=== PATIENT | female | born 1975 | race African-American/Black ===

== ENCOUNTER 2017-03-20 22:34 | Inpatient (IN) | payer MEDICAID ==
[~2017-03-20] VITALS: Ht 170.2 cm; Wt 121.1 kg
[~2017-03-20 22:34] MED LIST: AMITRIPTYLINE H50 MG PO; BACLOFEN10 MG PO; DIL4 PO; DOC-Q-LACE100 MG PO; GABAPENTIN600 M1 PO; HYD1C TOP; JANUVIA100 M1 PO; LAC PO; LANTUS SOLOS100 U/M1 SQ; MAC100 PO; METFORMIN HCL500 MG PO; METOPROLOL TART25 M1 PO; MORPHINE SULFAT50 MG PO; VOLTAREN75 MG PO; ZESTRIL20 MG PO
[2017-03-20 23:34] LABS: BASOPHIL % 0.4 % (0-2); PLATELET COUNT 265 x10^3mcL (130-400); RED CELL DISTRIBUTION WIDTH 14.4 % (11.5-14.5)
[2017-03-20 23:52] LABS: ALBUMIN 3.6 g/dL (3.4-5.0); BILIRUBIN TOTAL 0.17 mg/dL (0.20-1.00); CALCIUM 9.5 mg/dL (8.5-10.1); CARBON DIOXIDE 28.1 mmol/L (21-32); CREATININE SERUM 1.5 mg/dL (0.6-1.0); POTASSIUM SERUM 3.6 mmol/L (3.5-5.1); TOTAL PROTEIN, SERUM 7.5 g/dL (6.4-8.2)
[2017-03-21 03:14] LABS: AMPHETAMINE QUAL UR NONE DETECTED (NEG <=1000)
[2017-03-21] MEDS ORDERED: BACLOFEN20 MG PO (05:32)
[2017-03-21] MEDS ORDERED: AMITRIPTYLINE150 MG PO (05:34)
[2017-03-21] MEDS ORDERED: NUCYNTA100 M1 PO (05:45)
[2017-03-21 06:25] VITALS: BP 126/83
[2017-03-21 06:51] LABS: CHOLESTEROL/HDL RATIO 4.8
[2017-03-21 07:00] LABS: FREE THYROXINE INDEX 2.2 ug/dL (1.4-4.5); T3 TOTAL 1.02 ng/mL; T4(THYROXINE) 6.6 ug/dL (4.7-13.3)
[2017-03-21 10:12] VITALS: BP 112/73
[2017-03-21 14:13] VITALS: BP 104/70
[2017-03-21 14:20] LABS: UA SPECIFIC GRAVITY >=1.030 (1.005-1.035); microscopic required? YES; urine erythrocyte NEGATIVE (NEGATIVE)
[2017-03-21 18:39] VITALS: BP 89/51
[2017-03-21 19:50] VITALS: BP 78/50
[2017-03-22 00:30] VITALS: BP 113/67
[2017-03-22 06:45] LABS: BASOPHIL % 0.5 % (0-2); PLATELET COUNT 225 x10^3mcL (130-400); RED CELL DISTRIBUTION WIDTH 14.5 % (11.5-14.5)
[2017-03-22 06:47] VITALS: BP 94/55
[2017-03-22 06:58] LABS: CALCIUM 8.3 mg/dL (8.5-10.1); CARBON DIOXIDE 29.8 mmol/L (21-32); CREATININE SERUM 1.3 mg/dL (0.6-1.0); MAGNESIUM 1.6 mg/dL (1.8-2.4)
[2017-03-22 09:43] VITALS: BP 97/66
[2017-03-22] MEDS ORDERED: MOT800 PO (13:30)
[2017-03-22 13:46] VITALS: BP 97/66
== END 2017-03-22 14:20 | disposition home or self-care (01) | DRG 203 ==
LOC: ED 22:34 → DU 03-21 04:48
PROVIDERS: Emergency Medicine; ADMIT Family Medicine
DX: M94.0 Chondrocostal junction syndrome [Tietze] (principal); N17.0 Acute kidney failure with tubular necrosis; E87.1 Hypo-osmolality and hyponatremia; G43.909 Migraine, unspecified, not intractable, without status migrainosus; M54.9 Dorsalgia, unspecified; G89.29 Other chronic pain; Z68.41 Body mass index [BMI] 40.0-44.9, adult; Z79.84 Long term (current) use of oral hypoglycemic drugs; Z79.4 Long term (current) use of insulin
CPT/HCPCS: 83880; 84439; J1170; J1815; J1885; J2060; J2270; J2405; J3010; J7030; Q0092; Q9967

== ENCOUNTER 2017-03-31 09:23 | Emergency (ER) | payer MEDICAID ==
[~2017-03-31 09:23] MED LIST changes: +AMITRIPTYLINE150 MG PO; +BACLOFEN20 MG PO; +MOT800 PO; +NUCYNTA100 M1 PO
[2017-03-31 10:46] LABS: BASOPHIL % 0.7 % (0-2); PLATELET COUNT 280 x10^3mcL (130-400); RED CELL DISTRIBUTION WIDTH 14.3 % (11.5-14.5)
[2017-03-31 11:01] LABS: CALCIUM 9.3 mg/dL (8.5-10.1); CARBON DIOXIDE 23.6 mmol/L (21-32); CREATININE SERUM 2.7 mg/dL (0.6-1.0); POTASSIUM SERUM 4.4 mmol/L (3.5-5.1)
[2017-03-31 11:05] LABS: ALBUMIN 3.6 g/dL (3.4-5.0); BILIRUBIN TOTAL 0.15 mg/dL (0.20-1.00); TOTAL PROTEIN, SERUM 8.1 g/dL (6.4-8.2)
[2017-03-31 13:41] LABS: AMPHETAMINE QUAL UR NONE DETECTED (NEG <=1000)
[2017-03-31 14:57] VITALS: BP 112/67
== END 2017-03-31 14:58 | disposition home or self-care (01) ==
LOC: ED 09:23
PROVIDERS: Emergency Medicine
DX: S93.401A Sprain of unspecified ligament of right ankle, initial encounter (principal); R55 Syncope and collapse; G89.29 Other chronic pain; M54.9 Dorsalgia, unspecified; E11.9 Type 2 diabetes mellitus without complications; Z86.79 Personal history of other diseases of the circulatory system; W18.30XA Fall on same level, unspecified, initial encounter; Y93.89 Activity, other specified; Y99.8 Other external cause status; Y92.89 Other specified places as the place of occurrence of the external cause
CPT/HCPCS: 83880; G0480; J0780; J1885; J2270; J2550; J7030; Q0092